=== PATIENT | female | born 1965 | race Caucasian/White ===

== ENCOUNTER 2017-10-12 08:53 | Emergency (ER) | payer OTHER ==
[~2017-10-12] VITALS: Ht 167.6 cm; Wt 158.0 kg
[~2017-10-12 08:53] MED LIST: FLUOXETINE HCL20 MG PO; NAPROSYN500 MG PO
== END 2017-10-12 10:02 | disposition home or self-care (01) ==
LOC: ED 08:53
DX: M79.604 Pain in right leg (principal); Z88.8 Allergy status to other drugs, medicaments and biological substances; Z79.899 Other long term (current) drug therapy
CPT/HCPCS: 93971; 99284